=== PATIENT | female | born 1965 | race African-American/Black ===

== ENCOUNTER 2023-12-11 17:13 | Emergency (ER) | payer OTHER ==
[~2023-12-11] VITALS: Ht 162.6 cm; Wt 73.0 kg
[2023-12-11 17:27] VITALS: TEMP 97.6; O2SAT 99
[2023-12-11] MEDS: ONDANSETRON 4MG ODT PO STA (18:22)
[2023-12-11] MEDS: CLONIDINE 0.1MG TABLET PO ONE (18:22)
[2023-12-11 20:01] LABS: BASOPHILS % 0.7 % (0.0-2.0); EOSINOPHILS % 0.7 % (0.0-5.0); HEMATOCRIT. 42.7 % (36.0-48.0); HEMOGLOBIN. 14.1 g/dL (12.0-16.0); LYMPHOCYTES % 28.8 % (20.0-50.0); MEAN CORPUSCULAR HEMOGLOBIN 27.4 pg (28.0-32.0); MEAN CORPUSCULAR HGB CONC 32.9 g/dL (31.0-37.0); MEAN CORPUSCULAR VOLUME 83.3 fL (81.0-99.0); MEAN PLATELET VOLUME 8.1 fl (7.4-10.4); MONOCYTES % 3.8 % (2.0-8.0); PLATELET 417 x1000/uL (130-400); RED BLOOD CELL COUNT 5.13 mill/uL (4.2-5.4); RED CELL DISTRIBUTION WIDTH 14.5 % (11.6-14.6); WHITE BLOOD COUNT 8.2 x1000/uL (4.5-11.0)
[2023-12-11 20:21] LABS: ALANINE AMINOTRANSFERASE 11 IU/L (10-49); ALBUMIN 4.7 g/dL (3.2-4.8); ASPARTATE AMINOTRANSFERASE 14 IU/L (<34); BILIRUBIN TOTAL 0.3 mg/dL (0.1-1.0); CALCIUM 9.3 mg/dL (8.7-10.4); CARBON DIOXIDE 28 mEq/L (21-32); CHLORIDE 102 mEq/L (98-107); CREATININE 0.9 mg/dL (0.6-1.0); GLUCOSE 165 mg/dL (70-105); POTASSIUM 3.9 mEq/L (3.5-5.1); PROTEIN TOTAL 8.1 g/dL (6.0-8.3); SODIUM 135 mEq/L (136-145); UREA NITROGEN BLOOD 11 mg/dL (9-23)
[2023-12-11 20:28] LABS: ETHANOL BLOOD < 10 mg/dL (<10)
[2023-12-11 21:49] VITALS: BP 152/85; PULSE 74; RESP 14
== END 2023-12-11 21:51 | disposition home or self-care (01) ==
LOC: ER 17:13
DX: F19.10 Other psychoactive substance abuse, uncomplicated (principal); I10 Essential (primary) hypertension; E11.9 Type 2 diabetes mellitus without complications
CPT/HCPCS: 80053; 80320; 85025; 36415; 99283; Q0162; G0480